=== PATIENT | male | born 1995 | race Caucasian/White ===

== ENCOUNTER 2017-12-30 18:12 | Emergency (ER) | payer OTHER ==
[~2017-12-30] VITALS: Ht 185.4 cm; Wt 80.1 kg
[2017-12-30 18:13] VITALS: BP 124/86
[2017-12-30] MEDS ORDERED: OXYcodone/APAP 5/325MG TABLET PO ONE (19:00)
[2017-12-30] MEDS ORDERED: MORPHINE SULFATE 4 MG/ML, 1ML ONE (19:21)
[2017-12-30] MEDS ORDERED: MORPHINE SULFATE 4 MG/ML, 1ML IVPush PRN (19:30)
[2017-12-30] MEDS ORDERED: SODIUM CHLORIDE FLUSH 10ML SYR IVF ONE (19:30)
== END 2017-12-30 21:14 | disposition home or self-care (01) ==
LOC: ED 21:13
DX: S52.124A Nondisplaced fracture of head of right radius, initial encounter for closed fracture (principal); V00.131A Fall from skateboard, initial encounter; Y93.51 Activity, roller skating (inline) and skateboarding; Y92.89 Other specified places as the place of occurrence of the external cause; Y99.8 Other external cause status
CPT/HCPCS: 29105; 99284